=== PATIENT | female | born 1930 | race Caucasian/White ===

== ENCOUNTER 2016-12-25 19:20 | Emergency (ER) | payer OTHER, MEDICAID ==
[~2016-12-25] VITALS: Ht 165.1 cm; Wt 61.2 kg
[2016-12-25 19:25] VITALS: BP_SYST 135
--- NOTE | 2016-12-25 19:30 | NUR ---
Patient to ER bed 1 to gown for evaluation. Side rails up. Report given to ASHLEY GIPSON.
--- NOTE | 2016-12-25 19:39 | NUR ---
Pt in bed, states she has pain 9/10 from her tail bone to her bottom of foot, she took motrin at 1pm today.
--- NOTE | 2016-12-25 20:25 | NUR ---
ER Dr. rosa at bedside examining patient.
[2016-12-25] MEDS ORDERED: MORPHINE SULFATE 10 MG/ML VIAL IM ONE (20:30)
--- NOTE | 2016-12-25 20:36 | NUR ---
Ordered med given, pt tolerated well. Will continue to monitor.
--- NOTE | 2016-12-25 21:48 | NUR ---
Patient transported to CT via [facility], accompanied by layla Castellanos.
[2016-12-25] MEDS ORDERED: ONDANSETRON HCL 4 MG/2 ML VIAL IM ONE (22:45)
--- NOTE | 2016-12-25 22:48 | NUR ---
Patient given written and verbal discharge instructions and verbalizes understanding. ER MD Dr. Lawrence discussed with patient the results and treatment provided. Given copies of tests performed in ER. Patient in stable condition. ID arm band removed. Rx of Tramadol given. Patient educated on pain management and to follow up with PMD. Pain Scale 3/10. Pt wheelchaired to private vehicle w/ family. Pt states she feels much better. Opportunity for questions provided and answered.
[2016-12-25 22:52] VITALS: BP_SYST 144
== END 2016-12-25 22:48 | disposition home or self-care (01) ==
LOC: SED 19:20
DX: M54.32 Sciatica, left side (principal); M48.06 Spinal stenosis, lumbar region; E11.9 Type 2 diabetes mellitus without complications; I10 Essential (primary) hypertension; H40.9 Unspecified glaucoma
CPT/HCPCS: 72131; 96372; 99284; J2270; J2405

== ENCOUNTER 2018-09-18 13:13 | Emergency (ER) | payer OTHER, MEDICAID ==
[~2018-09-18] VITALS: Ht 165.1 cm; Wt 61.2 kg
[~2018-09-18 13:13] MED LIST: AMLO5TAB4 PO; LISI30TA36 PO; NAPR-1174 PO; PARO-41 PO; RANI-362 PO
[2018-09-18 13:19] VITALS: BP_SYST 122
[2018-09-18] MEDS ORDERED: NACL 0.9% 1,000 ML IV ONE (13:21)
[2018-09-18] MEDS ORDERED: ASPIRIN 81 MG TAB.CHEW PO ONE (13:30)
[2018-09-18] MEDS ORDERED: ONDANSETRON HCL 4 MG/2 ML VIAL IVP ONE (13:30)
[2018-09-18] MEDS ORDERED: MORPHINE 4 MG/ML INJ. SYRINGE IVP ONE (13:30)
[2018-09-18 13:48] LABS: BASOPHILS % (AUTO) 0.3 % (0.0-2.0); EOSINOPHILS # (AUTO) 0.1 K/uL (0.0-0.4); HEMATOCRIT 31.8 % (36-48); HEMOGLOBIN 10.7 g/dL (12.0-16.0); LYMPHOCYTES % (AUTO) 21.3 % (20.5-51.5); MEAN CORPUSCULAR HEMOGLOBIN 33 pg (27-31); MEAN CORPUSCULAR HGB CONC 34 % (32-36); MEAN CORPUSCULAR VOLUME 98 fL (79.0-98.0); MONOCYTES # (AUTO) 0.4 K/uL (0.0-1.0); NEUTROPHILS % (AUTO) 73.4 % (40.0-70.0); PLATELET COUNT (AUTO) 315 K/uL (130-430); RED BLOOD CELL COUNT(AUTO) 3.26 MIL/uL (4.2-6.2); RED CELL DISTRIBUTION WIDTH 12.6 % (9.0-15.0); WHITE BLOOD COUNT (AUTO) 9.5 K/uL (4.8-10.8)
[2018-09-18 14:04] LABS: ANION GAP 12 (5-15); CALCIUM 8.6 mg/dL (8.4-11.0); CHLORIDE 105 mmol/L (98-107); GLUCOSE 210 mg/dL (70-99); POTASSIUM 4.5 mmol/L (3.5-5.1); SODIUM SERUM 137 mmol/L (136-145); UREA NITROGEN, BLOOD 27 mg/dL (8-21)
[2018-09-18 14:08] LABS: ALANINE AMINOTRANSFERASE 11 U/L (12-78); ALBUMIN 3.4 g/dL (3.4-4.8); AMYLASE 81 U/L (0-100); ASPARTATE AMINOTRANSFERASE 11 U/L (10-37); LIPASE 219 U/L (73-393); TOTAL BILIRUBIN 0.2 mg/dL (0.0-1.0)
[2018-09-18 14:10] LABS: PROTHROMBIN TIME 9.9 SECS (9.5-12.5)
[2018-09-18 16:29] VITALS: BP_SYST 113
== END 2018-09-18 16:27 | disposition home or self-care (01) ==
LOC: SED 13:13
DX: K27.9 Peptic ulcer, site unspecified, unspecified as acute or chronic, without hemorrhage or perforation (principal); R10.13 Epigastric pain; E11.65 Type 2 diabetes mellitus with hyperglycemia; I10 Essential (primary) hypertension; Z87.448 Personal history of other diseases of urinary system; Z79.899 Other long term (current) drug therapy
CPT/HCPCS: 36415; 71045; 80053; 82150; 82550; 83605; 83690; 83880; 84484; 85025; 85610; 85730; 87040; 93005; 96361; 96374; 96375; 99284; J2270; J2405; J7030